=== PATIENT | female | born 1955 | race Caucasian/White ===

== ENCOUNTER 2018-01-14 06:12 | Day surgery (SDC) | payer OTHER ==
[2018-01-13 10:18] VITALS: BMI 29.8
--- NOTE | 2018-01-13 23:05 | HP ---
DATE OF ADMISSION: 01/14/2018 HISTORY OF PRESENT ILLNESS: This is a 62-year-old female with chronic acid reflux over the years. T he patient has been having breakthrough symptoms with starting pantoprazole. The patient has had no dysphagia or abdominal pain. The patient comes for EGD for evaluation of chronic acid reflux and for colonoscopy for colon cancer screening. ALLERGIES: None. SOCIAL HISTORY: The patient smokes one-half packet of cigarettes per day. Does not drink alcohol. MEDICAL ILLNESSES: 1. Coronary artery disease, status post coronary artery bypass graft. 2. Chronic acid reflux. 3. Depression. 4. Sleep disorder. 5. Hypertension. 6. Hyperlipidemia. 7. Hysterectomy. PHYSICAL EXAMINATION: VITAL SIGNS: Pulse is 70, blood pressure 130/80. HEENT: Conjunctivae clear. CARDIOVASCULAR: First and second heart sounds are normal. LUNGS: Clear to auscultation. ABDOMEN: Soft to palpate. No organomegaly. No tenderness. No masses. ADMITTING DIAGNOSES: 1. Chronic acid reflux. 2. Colon cancer screening. PLAN: EGD and colonoscopy.
--- NOTE | 2018-01-14 09:40 | OP ---
DATE OF PROCEDURE: 01/14/2018 OPERATIVE PROCEDURE: Colonoscopy. PREOPERATIVE DIAGNOSIS: A 62-year-old female undergoing colonoscopy for colon cancer constantin roberts. POSTOPERATIVE DIAGNOSIS: Normal colonoscopy except for hemorrhoids. PROCEDURE IN DETAIL: The patient was placed on her left lateral position and was given sedation by A nesthesia Department. A rectal exam was done before the scope was advanced into the rectum. No othe r lesion felt on rectal exam. A Pentax video colonoscope was introduced into the rectum and advanced all the way into the cecum. The prep was very good. The mucosa appears normal throughout the colon with normal vascular pattern. The patient had a very redundant, tortuous colon. The appendiceal or ifice, ileocecal valve, cecum, no pathology seen. Withdrawal of scope from the cecum to ascending co fanny, hepatic flexure, no pathology seen. The transverse colon, splenic flexure, descending colon, an d sigmoid colon, no pathology seen. The rectum showed hemorrhoids.
--- NOTE | 2018-01-14 09:58 | OP ---
DATE OF PROCEDURE: 01/14/2018 SURGEON: Magalis Nunez M.D. OPERATIVE PROCEDURE: 1. Esophageal dilation with biopsy. 2. Esophageal dilation 50-Syriac Muñoz dilator. PREOPERATIVE DIAGNOSIS: Chronic acid reflux. POSTOPERATIVE DIAGNOSES: 1. Esophageal ring at the upper esophagus. 2. Normal esophageal mucosa. 3. Irregular Z-line. 4. Hiatus hernia. 5. Erosive antral gastritis. PROCEDURE IN DETAIL: The patient was placed on her left lateral position and was given sedation by Anesthesia Department. A Pentax video gastroscope under direct vision was passed down the oropharynx, past the GE junction, into the stomach. The vocal cords appears very healthy. Just below the upper esophageal sphincter there was an esophageal ring seen, but the ring is really not very tight. The esophageal mucosa appeared normal. The Z-line is irregular. The patient had a 3 cm sized hiatus hernia . Retroflexion failed to show pathology in the fundus or cardia. The gastric body, no pathology seen. The patient had erosive antral gastritis seen. Mucosa is extremely hyperemic, hemorrhagic appearing. This was biopsied. The incisural angularis, no pathology seen. The duodenal bulb and descending duodenum, no pathology seen. Biopsies of the gastric antrum and gastric body. Also, biopsy at the GE junction, irregular Z-line. The scope removed. An empiric dilation done with 50-Syriac Muñoz dilator. This was advanced without difficulty. DISCHARGE PLANNING: A 62-year-old female with chronic acid reflux. She came for an EGD and for a colonoscopy for colon cancer screening. The EGD showed irregular Z-line, hiatus hernia, erosive antral gastritis. The colonoscopy was basically negative. DISCHARGE RECOMMENDATIONS: 1. Resume all medicines as before. 2. She was advised to call me if she develops any chest pain, hematemesis and melena. 3. Come back to the clinic in 2 weeks. [facility]
[2018-01-14] MEDS ORDERED: PROPOFOL 200 MG/20 ML VIAL ONE (14:21)
[2018-01-14] MEDS ORDERED: Lidocaine 1% PF 5 ML VIAL ONE (14:21)
== END 2018-01-14 09:55 | disposition home or self-care (01) ==
LOC: SDC 06:12
PROVIDERS: ATTEND Internal Medicine Gastroenterology
PROC: 0D758ZZ Dilation of Esophagus, Via Natural or Artificial Opening Endoscopic (ICD-10-PCS; principal; 2018-01-14)
PROC: 0DJD8ZZ Inspection of Lower Intestinal Tract, Via Natural or Artificial Opening Endoscopic (ICD-10-PCS; principal; 2018-01-14)
PROC: 0DB78ZX Excision of Stomach, Pylorus, Via Natural or Artificial Opening Endoscopic, Diagnostic (ICD-10-PCS; principal; 2018-01-14)
DX: Z12.11 Encounter for screening for malignant neoplasm of colon (principal); K29.50 Unspecified chronic gastritis without bleeding; K22.2 Esophageal obstruction; K44.9 Diaphragmatic hernia without obstruction or gangrene; K64.9 Unspecified hemorrhoids; K21.9 Gastro-esophageal reflux disease without esophagitis; F17.210 Nicotine dependence, cigarettes, uncomplicated; I25.10 Atherosclerotic heart disease of native coronary artery without angina pectoris; F32.9 Major depressive disorder, single episode, unspecified; I10 Essential (primary) hypertension; E78.5 Hyperlipidemia, unspecified; Z79.899 Other long term (current) drug therapy; Z95.1 Presence of aortocoronary bypass graft
CPT/HCPCS: 88305; 88312; 88313; J2001; J2704

== ENCOUNTER 2018-04-26 19:30 | Outpatient (CLI) | payer OTHER | END 2018-04-26 19:31 | disposition home or self-care (01) | LOC: SLEEPLAB 19:30 | PROVIDERS: ATTEND Family Medicine | DX: G47.33 Obstructive sleep apnea (adult) (pediatric) (principal); K21.9 Gastro-esophageal reflux disease without esophagitis; F41.9 Anxiety disorder, unspecified; I10 Essential (primary) hypertension; I25.10 Atherosclerotic heart disease of native coronary artery without angina pectoris; G47.61 Periodic limb movement disorder; R09.02 Hypoxemia | CPT/HCPCS: 95810 ==

== ENCOUNTER 2018-12-15 13:05 | Outpatient (CLI) | payer OTHER | END 2018-12-15 13:06 | disposition home or self-care (01) | LOC: ULT 13:05 | PROVIDERS: ATTEND Family Medicine | DX: I25.810 Atherosclerosis of coronary artery bypass graft(s) without angina pectoris (principal); I08.1 Rheumatic disorders of both mitral and tricuspid valves | CPT/HCPCS: 93306 ==

== ENCOUNTER 2019-02-14 17:39 | Emergency (ER) | payer OTHER ==
[~2019-02-14 17:39] MED LIST: ISOVUE-370 76%-LOCM 1 ML ONE
[2019-02-14 18:19] LABS: #Basophils 0.1 thou/uL (0.0-0.2); #Eosinphils 0.6 thou/uL (0.0-0.7); #Lymphocytes 3.8 thou/uL (1.20-3.40); #Monocytes 1.2 thou/uL (0.11-0.59); #Neutrophils 7.4 thou/uL (1.40-6.50); %Basophils 0.5 % (0.0-1.0); %Eosinophils 4.5 % (0.0-10.0); %Monocytes 9.2 % (0.0-10.0); %Neutrophils 56.9 % (42.0-75.0); Hemoglobin 15.6 g/dL (12.0-16.0); Mean Corpuscular HGB CONC 34.7 g/dL (32.0-36.0); Mean Corpuscular Hemoglobin 31.7 pg (27.0-31.0); Mean Corpuscular Volume 91.4 fL (78.0-98.0); Mean Platelet Volume 7.7 fL (7.4-10.4); Platelet Count 195 thou/uL (130-400); RBC Distribution Width 12.9 % (11.5-14.5); Red Blood Cell (RBC) Count 4.93 mill/uL (4.20-5.40)
[2019-02-14 18:41] LABS: ALT (SGPT) 38 U/L (8-55); AST (SGOT) 24 U/L (5-34); Albumin 4.3 g/dL (3.4-4.8); Alkaline Phosphatase 89 U/L (40-110); Anion Gap 13 mmol/L (10-20); BUN (Urea Nitrogen) 14 mg/dL (9.8-20.1); Bilirubin, Total 0.5 mg/dL (0.2-1.2); CK (CPK) 104 U/L (29-168); Calc. Creatinine Clearance 0 mL/min (70-130); Calcium 9.8 mg/dL (7.8-10.44); Carbon Dioxide 20 mmol/L (23-31); Chloride 108 mmol/L (98-107); Estimated GFR-MDRD 74; Globulin 2.7 g/dL (2.4-3.5); Glucose 93 mg/dL (80-115); Potassium 4.1 mmol/L (3.5-5.1); Sodium 137 mmol/L (136-145)
--- NOTE | 2019-02-14 18:45 | RAD ---
EXAM: Single view of the chest HISTORY: Chest pain and hypertension COMPARISON: 08/03/2018 FINDINGS: Single view of the chest shows a normal sized cardiomediastinal silhouette. The patient is status post CABG. There is no evidence of consolidation, mass, or pleural effusion. The bones are unremarkable. IMPRESSION: No evidence of acute cardiopulmonary disease
[2019-02-14 19:22] LABS: Bilirubin Negative (Negative); Blood, Urine Negative (Negative); Clarity Clear (Clear); Glucose, Urine (Dipstick) Normal (Negative); Leukocyte Negative Leu/uL (Negative); Nitrite Negative (Negative); Protein, Urine (Dipstick) Negative (Neg-Trace); Urobilinogen Normal mg/dL (Less than 2)
--- NOTE | 2019-02-14 19:43 | ULT ---
ULTRASOUND ABDOMEN LIMITED: (RIGHT UPPER QUADRANT) DATE: 02/14/2019 HISTORY: 63-year-old female with epigastric abdominal pain. FINDINGS: Gallbladder:A few tiny gallstones at proximal body and at neck, at least 2. Each on the order of 0.8 cm in size. No mural thickening or pericholecystic fluid. Common duct: 4 mm. Liver:Enlarged. Diffusely increased echogenicity and deep signal dropout, consistent with fatty liver . There is a 2.5 x 2 cm moderately hypodense lesion in right lobe of liver.. Pancreas:Poorly visualized. Right kidney:No hydronephrosis. IMPRESSION: 1) positive for cholelithiasis without sonographic evidence of acute cholecystitis.. 2) hepatic steatosis and hepatomegaly. 3) 2.5 cm focal lesion in right lobe of liver. Nonspecific. Uncertain whether cyst or solid mass. Rec ommend further evaluation with multiphase MRI or CT of abdomen with and without contrast, liver mass protocol, on a nonemergent basis.
--- NOTE | 2019-02-14 20:14 | CT ---
CT ABDOMEN WITH CONTRAST CT PELVIS WITH CONTRAST: DATE: 02/14/2019 HISTORY: 63-year-old female with epigastric and right upper quadrant abdominal pain. Indeterminate hepatic les ion seen on ultrasound. COMPARISON: None TECHNIQUE: IV injection of iodinated contrast media: administered. Oral contrast media:Not administered FINDINGS: Diffusely low hepatic attenuation represents fatty liver. In hepatic segment 8 of the right lobe liver, there is a focal round 2.5 x 2.5 x 2.5 cm moderately hy perdense lesion that corresponds to the hypoechoic lesion found on ultrasound. This is not a cyst. No biliary dilation. No pericholecystic edema. No major pathology identified involving kidneys, abdominal aorta, adrenals, pancreas, spleen, appendi x, and urinary bladder. No colonic diverticulitis. No small bowel dilation. No ascites or pneumoperitoneum. Lung bases are grossly clear. Bilateral L5 pars interarticularis defects. Little or no anterolisthesis of L5 on S1. 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 IMPRESSION: 1) solid 2.5 cm mass in hepatic segment 8 of right lobe of liver, consistent with neoplasm. This is n ot a hemangioma. On an elective, nonemergent basis, multiphase MRI of abdomen, liver mass protocol, with and without contrast, is recommended. 2) hepatic steatosis. 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
[2019-02-14] MEDS ORDERED: Ondansetron PF 4 MG/2 ML Vial ONE (20:22)
[2019-02-14] MEDS ORDERED: Ketorolac Tromethamine 30 MG/ML VIAL ONE (21:11)
== END 2019-02-14 21:33 | disposition home or self-care (01) ==
LOC: ERS 17:39
DX: K80.20 Calculus of gallbladder without cholecystitis without obstruction (principal); R16.0 Hepatomegaly, not elsewhere classified; I10 Essential (primary) hypertension; I25.2 Old myocardial infarction; F17.210 Nicotine dependence, cigarettes, uncomplicated
CPT/HCPCS: 36415; 71045; 74177; 76705; 80053; 81003; 82550; 83690; 84484; 85025; 93005; 96374; 96375; J1885; J2405

== ENCOUNTER 2020-03-29 06:39 | Outpatient (CLI) | payer BC ==
[2020-03-29 20:04] LABS: SARS-CoV-2 MS2 Positive; SARS-CoV-2 N Gene Negative; SARS-CoV-2 S Gene Negative; SARS-CoV-2 by NAA Not Detected (NotDetected); SARS-CoV-2 orf1ab Negative
== END 2020-03-29 06:40 | disposition home or self-care (01) ==
LOC: LABBT 06:39
PROVIDERS: ATTEND Internal Medicine Gastroenterology
DX: Z01.812 Encounter for preprocedural laboratory examination (principal); Z20.828 Contact with and (suspected) exposure to other viral communicable diseases; R10.9 Unspecified abdominal pain; R19.7 Diarrhea, unspecified
CPT/HCPCS: 87635; U0003

== ENCOUNTER 2020-04-01 07:01 | Day surgery (SDC) | payer BC ==
[2020-03-31 10:33] VITALS: BMI 31.8
--- NOTE | 2020-04-01 01:12 | HP ---
HISTORY OF PRESENT ILLNESS: This is a 64-year-old female, comes in for EGD and colonoscopy. The patient had abdominal pain with diarrhea over the last several weeks. The stools are watery. No bleeding. No fever. The patient had stool studies that came back negative for any pathology. The patient also had abdominal pain over the epigastric area off and on over the last several weeks ago. No nausea, no vomiting. The patient comes for an EGD and colonoscopy because of the above reason. ALLERGIES: NO DRUG ALLERGIES. MEDICAL ILLNESSES: 1. Coronary artery disease. 2. Depression. 3. Chronic acid reflux. 4. Hypertension. 5. Hyperlipidemia. 6. Liver masses, workup negative for malignancy either. SOCIAL HISTORY: The patient is a smoker. Does not drink alcohol. PHYSICAL EXAMINATION: VITAL SIGNS: Her weight is 196 pounds, pulse is 72, blood pressure 120/76. CARDIOVASCULAR SYSTEM: Normal heart sounds. LUNGS: Clear to auscultation. ABDOMEN: Soft to palpate. Abdomen is tender over the epigastric area. No rebound or guarding. No organomegaly. No masses. EXTREMITIES: Reveal no edema. ADMITTING DIAGNOSIS: Abdominal pain, chronic diarrhea. PLAN: EGD and colonoscopy. Job ID: [id number] MTDD
[2020-04-01] MEDS ORDERED: PROPOFOL 200 MG/20 ML VIAL ONE (10:17)
--- NOTE | 2020-04-03 12:04 | OP ---
DATE OF PROCEDURE: 04/01/2020 OPERATIVE PROCEDURE: Colonoscopy. PREOPERATIVE DIAGNOSIS: A 54-year-old female with chronic abdominal pain, diarrhea with negative stool studies. The patient underwent colonoscopy because of the above reason. POSTOPERATIVE DIAGNOSIS: Normal colonoscopy. The colon was tortuous, redundant. PROCEDURE NOTE: The patient was placed on her left lateral position and was given sedation by Anesthesia Department. A rectal exam was done before the scope was advanced into the rectum. No lesions felt on rectal exam. A Pentax video colonoscope was introduced into the rectum and advanced all the way into the cecum. The patient had redundant, tortuous colon. Abdominal compression was used to advance scope all the way into the cecum. Although, she has had chronic diarrhea, the mucosa appeared normal throughout the colon. The appendicular opening, ileocecal valve, and cecum well seen. No pathology seen. Withdrawal of scope in the cecum to ascending colon, hepatic flexure, no pathology. The transverse colon, splenic flexure, descending colon, sigmoid colon, no lesion seen. Retroflexion of scope in the rectum showed hemorrhoids. With history of chronic diarrhea, random biopsies of the ascending colon, transverse colon, sigmoid colon. Job ID: [id number]
--- NOTE | 2020-04-03 12:17 | OP ---
DATE OF PROCEDURE: 04/01/2020 OPERATIVE PROCEDURE: Esophagogastroduodenoscopy with biopsy. PREOPERATIVE DIAGNOSIS: A 64-year-old female with abdominal pain that is chronic in nature. The patient has negative CAT scan and MRI recently. She does have a liver mass and it was a benign lesion. The patient underwent EGD because of chronic abdominal pain. POSTOPERATIVE DIAGNOSES: 1. Normal esophageal mucosa. 2. Hiatus hernia, about 2 cm in length. 3. Normal gastric fundus and body and antrum. Normal duodenum. Biopsies obtained in the descending duodenum and also from the gastric antrum and gastric body. PROCEDURE NOTE: The patient was placed on her left lateral position and was given sedation by Anesthesia Department. Again, Pentax video gastroscope under direct vision passed down the oropharynx, past the GE junction into the stomach and subsequently into the descending duodenum. The vocal cords appeared very healthy. The esophageal mucosa appeared normal throughout the esophagus. The GE junction, no lesion seen. There was hiatus hernia measuring about 2 cm. Retroflexion failed to show any pathology in fundus or cardia. The gastric body, gastric incisura, gastric antrum; no lesion seen. The duodenal bulb, descending duodenum; no pathology. Biopsy of the descending duodenum. Also, biopsy obtained of the gastric antrum and gastric body. The stomach decompressed, and the scope removed. DISCHARGE PLANNIN. This is a 64-year-old female, came in for EGD and colonoscopy with abdominal pain, chronic diarrhea. The EGD was negative. The colonoscopy again with no pathology seen. She had a biopsy of the descending duodenum and also multiple biopsies of the ascending colon different parts of colon. The patient did have some abdominal pain in the day surgery, but abdomen is very benign, not distended. Still very sleepy, kind of groggy and sleepy. She also had swelling under the right eye lid , more like a contusion. I did talk to Dr. Stephen Marin, anesthesiologist who came and saw the patient and basically reassured. The patient advised to call me if she does have abdominal pain, hematochezia. 2. Await gastric biopsy and biopsy of the colon. Will come back to see me in 2 weeks. Job ID: [id number] [facility]
== END 2020-04-01 11:56 | disposition home or self-care (01) ==
LOC: SDC 07:01
PROVIDERS: ATTEND Internal Medicine Gastroenterology
PROC: 0DBN8ZX Excision of Sigmoid Colon, Via Natural or Artificial Opening Endoscopic, Diagnostic (ICD-10-PCS; principal; 2020-04-01)
PROC: 0DB98ZZ Excision of Duodenum, Via Natural or Artificial Opening Endoscopic (ICD-10-PCS; principal; 2020-04-01)
PROC: 0DJD8ZZ Inspection of Lower Intestinal Tract, Via Natural or Artificial Opening Endoscopic (ICD-10-PCS; principal; 2020-04-01)
PROC: 0DB68ZX Excision of Stomach, Via Natural or Artificial Opening Endoscopic, Diagnostic (ICD-10-PCS; principal; 2020-04-01)
PROC: 0DBK8ZX Excision of Ascending Colon, Via Natural or Artificial Opening Endoscopic, Diagnostic (ICD-10-PCS; principal; 2020-04-01)
PROC: 0DBL8ZX Excision of Transverse Colon, Via Natural or Artificial Opening Endoscopic, Diagnostic (ICD-10-PCS; principal; 2020-04-01)
DX: K63.5 Polyp of colon (principal); K64.9 Unspecified hemorrhoids; K52.9 Noninfective gastroenteritis and colitis, unspecified; Q43.8 Other specified congenital malformations of intestine; K44.9 Diaphragmatic hernia without obstruction or gangrene; K21.9 Gastro-esophageal reflux disease without esophagitis; R10.9 Unspecified abdominal pain; I25.10 Atherosclerotic heart disease of native coronary artery without angina pectoris; F32.9 Major depressive disorder, single episode, unspecified; I10 Essential (primary) hypertension; E78.5 Hyperlipidemia, unspecified; F17.200 Nicotine dependence, unspecified, uncomplicated; Z79.82 Long term (current) use of aspirin; Z79.899 Other long term (current) drug therapy
CPT/HCPCS: 88305; 88312; J2704